=== PATIENT | female | born 1950 | race Caucasian/White ===

== ENCOUNTER 2019-09-21 11:27 | Emergency (ER) | payer OTHER ==
[~2019-09-21] VITALS: Ht 149.8 cm; Wt 61.2 kg
[~2019-09-21 11:27] MED LIST: CALCIUM WITH VI1 TAB PO; CALCIUM500 MG PO; FOSAMAX40 MG PO; FOSAMAX70 M1 PO; VITAMIN B COMPL1 CAP PO; ZOLOFT50 MG PO
[2019-09-21] MEDS ORDERED: PREDNISONE20 M1 PO (12:42)
== END 2019-09-21 12:42 | disposition home or self-care (01) ==
LOC: ED 11:27
DX: L25.9 Unspecified contact dermatitis, unspecified cause (principal); Z79.899 Other long term (current) drug therapy